=== PATIENT | male | born 1995 | race Caucasian/White ===

== ENCOUNTER 2018-02-13 22:58 | Emergency (ER) | payer SELFPAY ==
[~2018-02-13] VITALS: Ht 177.8 cm; Wt 72.6 kg
[2018-02-13 23:00] VITALS: BP 135/82; Ht 177.8 cm; Wt 72.6 kg
== END 2018-02-13 23:29 | disposition other institution (70) ==
LOC: ED 22:58
DX: F19.10 Other psychoactive substance abuse, uncomplicated (principal)

== ENCOUNTER 2018-02-13 22:58 | Emergency (ER) | payer OTHER | END 2018-02-13 23:29 | disposition other institution (70) | LOC: ED 22:58 | DX: Z02.89 Encounter for other administrative examinations (principal) ==

== ENCOUNTER 2019-04-01 10:59 | Emergency (ER) | payer OTHER ==
[~2019-04-01] VITALS: Ht 172.7 cm; Wt 68.0 kg
[2019-04-01 11:11] VITALS: Ht 172.7 cm; Wt 68.0 kg
[2019-04-01 11:24] VITALS: BP 106/60
== END 2019-04-01 11:24 | disposition other institution (70) ==
LOC: ED 10:59
DX: Z02.89 Encounter for other administrative examinations (principal)